=== PATIENT | female | born 1975 | race African-American/Black ===

== ENCOUNTER 2019-12-19 16:45 | Emergency (ER) | payer OTHER ==
[~2019-12-19] VITALS: Ht 167.6 cm; Wt 73.5 kg
[2019-12-19 17:22] VITALS: Ht 167.6 cm; Wt 73.5 kg
[2019-12-19 17:39] LABS: BASOPHIL % 0.7 % (0-2); PLATELET COUNT 290 x10^3mcL (130-400); RED CELL DISTRIBUTION WIDTH 13.8 % (11.5-14.5)
[2019-12-19 18:06] LABS: ALBUMIN 3.7 g/dL (3.4-5.0); ALKALINE PHOSPHATASE 73 U/L (46-116); ALT/SGPT 23 U/L (14-59); AST/SGOT 16 U/L (15-37); BILIRUBIN TOTAL 0.8 mg/dL (0.20-1.00); CALCIUM 8.4 mg/dL (8.5-10.1); CARBON DIOXIDE 24.7 mmol/L (21-32); CHLORIDE SERUM 104 mmol/L (98-107); GFR1 > 60 mL/min; GLUCOSE SERUM 111 mg/dL (74-106); POTASSIUM SERUM 3.8 mmol/L (3.5-5.1); SODIUM SERUM 138 mmol/L (136-145); TOTAL PROTEIN, SERUM 7.4 g/dL (6.4-8.2)
[2019-12-19 18:09] LABS: T3 TOTAL 1.16 ng/mL
[2019-12-19 18:26] LABS: FREE T4 1.24 ng/dL (0.76-1.46); FREE THYROXINE INDEX 3.2 ug/dL (1.4-4.5); T4(THYROXINE) 8.4 ug/dL (4.7-13.3)
[2019-12-19 20:59] VITALS: BP 131/88
== END 2019-12-19 20:59 | disposition home or self-care (01) ==
LOC: ED 16:45
PROVIDERS: Emergency Medicine
DX: R56.9 Unspecified convulsions (principal); R25.1 Tremor, unspecified
CPT/HCPCS: 36415; 84439; J1953